=== PATIENT | male | born 1930 | race Caucasian/White ===

== ENCOUNTER 2020-09-22 03:16 | Inpatient (IN) | payer MEDICARE ==
[2020-09-22] MEDS ORDERED: Nitroglycerin 0.4 MG TAB (25 Tab Bottle) SL PRN (03:45)
[2020-09-22] MEDS: Nitroglycerin 2% Ointment 1 INCH/1 GM Packet TOP SCH ×3 (04:30→20:25)
[2020-09-22 05:10] LABS: #Eosinphils 0.2 10x3/uL (0.0-0.5); #Monocytes 0.7 10x3/uL (0.0-1.1); #Neutrophils 5.7 10x3/uL (1.5-8.4); %Basophils 0.1 % (0.0-2.0); %Eosinophils 2.4 % (0.0-6.0); %Lymphocytes 16.4 % (18.0-47.0); %Monocytes 8.9 % (0.0-10.0); %Neutrophils 71.8 % (40.0-75.0); Mean Corpuscular HGB CONC 32.7 g/dL (32.0-36.0); Mean Corpuscular Hemoglobin 30.7 pg (27.0-33.0); Mean Corpuscular Volume 93.9 fl (81.2-95.1); Mean Platelet Volume 10.7 fl (7.4-10.4); Platelet Count 195 10x3/uL (150-450); RBC Distribution Width 13.2 % (11.5-14.5); Red Blood Cell (RBC) Count 3.58 10x6/uL (4.32-5.72)
[2020-09-22 05:34] LABS: Anion Gap 11 mmol/L (10-20); BUN (Urea Nitrogen) 27 mg/dL (8.4-25.7); Calc. Creatinine Clearance 0 mL/min (70-130); Calcium 8.2 mg/dL (7.8-10.44); Carbon Dioxide 24 mmol/L (23-31); Chloride 110 mmol/L (98-107); Glucose 73 mg/dL (83-110); Magnesium 1.9 mg/dL (1.6-2.6); Potassium 3.5 mmol/L (3.5-5.1); Sodium 141 mmol/L (136-145)
[2020-09-22 05:39] LABS: Troponin I 0.097 ng/mL (< 0.028)
[2020-09-22 06:12] VITALS: BMI 26.2
[2020-09-22] MEDS ORDERED: FLU VACC QS2020-21(65YR UP)/PF 240 MCG/0.7 ML SYRINGE IM ONE (07:45)
[2020-09-22] MEDS: Aspirin Chewable 81 MG TAB PO SCH (08:40)
[2020-09-22 10:14] LABS: Troponin I 0.088 ng/mL (< 0.028)
[2020-09-22 16:13] LABS: Troponin I 0.075 ng/mL (< 0.028)
[2020-09-22] MEDS: Enoxaparin Sodium 30 MG/0.3 ML SYRINGE SC SCH ×2 (20:25→21:03)
[2020-09-22] MEDS: Sodium Chloride 0.9% 1,000 ML IV SCH (20:38)
[2020-09-22 22:09] LABS: SARS-CoV-2 PCR by NAA Not Detected (NotDetected)
[2020-09-22 22:27] LABS: Troponin I 0.079 ng/mL (< 0.028)
[2020-09-23] MEDS: Nitroglycerin 2% Ointment 1 INCH/1 GM Packet TOP SCH ×3 (03:48→20:22)
[2020-09-23] MEDS: Sodium Chloride 0.9% 1,000 ML IV SCH ×2 (05:07→18:11)
[2020-09-23] MEDS ORDERED: hydrALAZINE 25 MG TAB ONE (08:47)
[2020-09-23] MEDS ORDERED: DorzolamidE/Timolol 2%/0.5% Ophth Soln 10 ml Bottle EA EYE SCH (09:00)
[2020-09-23] MEDS ORDERED: Aspirin 325 mg Enteric Coated Tablet PO SCH (09:00)
[2020-09-23] MEDS ORDERED: Atorvastatin Calcium 10 MG TAB PO SCH (09:00)
[2020-09-23] MEDS: Timolol 0.5% Ophth Soln 5 ml Bottle EA EYE SCH ×2 (09:05→20:24)
[2020-09-23] MEDS: Fluticasone Propionate Nasal Spray 16 gm Bottle NASAL SCH (09:07)
[2020-09-23] MEDS: Hydrochlorothiazide 25 MG TAB PO SCH (09:12)
[2020-09-23] MEDS: Amlodipine 10 MG TAB PO SCH (09:24)
[2020-09-23] MEDS: Aspirin Chewable 81 MG TAB PO SCH (09:25)
[2020-09-23] MEDS: hydrALAZINE 25 MG TAB PO SCH ×3 (09:26→20:23)
[2020-09-23] MEDS: Docusate Calcium (SURFAK) 240 MG CAP PO SCH (09:28)
[2020-09-23] MEDS: Dorzolamide HCl 2% Ophth Soln 10 ml Bottle EA EYE SCH ×2 (09:28→20:23)
[2020-09-23] MEDS: Atorvastatin Calcium 40 MG TAB PO SCH (20:23)
[2020-09-23] MEDS: Enoxaparin Sodium 30 MG/0.3 ML SYRINGE SC SCH (20:24)
[2020-09-24] MEDS: Nitroglycerin 2% Ointment 1 INCH/1 GM Packet TOP SCH ×3 (04:55→20:24)
[2020-09-24] MEDS: Sodium Chloride 0.9% 1,000 ML IV SCH ×2 (10:54→21:25)
[2020-09-24] MEDS: Amlodipine 10 MG TAB PO SCH (10:54)
[2020-09-24] MEDS: Aspirin Chewable 81 MG TAB PO SCH (10:55)
[2020-09-24] MEDS: hydrALAZINE 25 MG TAB PO SCH ×3 (10:55→20:23)
[2020-09-24] MEDS: Dorzolamide HCl 2% Ophth Soln 10 ml Bottle EA EYE SCH ×2 (10:56→20:24)
[2020-09-24] MEDS: Hydrochlorothiazide 25 MG TAB PO SCH (10:56)
[2020-09-24] MEDS: Timolol 0.5% Ophth Soln 5 ml Bottle EA EYE SCH ×2 (10:56→20:24)
[2020-09-24] MEDS: Fluticasone Propionate Nasal Spray 16 gm Bottle NASAL SCH (10:57)
[2020-09-24] MEDS: Docusate Calcium (SURFAK) 240 MG CAP PO SCH (10:57)
[2020-09-24] MEDS: Atorvastatin Calcium 40 MG TAB PO SCH (20:23)
[2020-09-24] MEDS: Enoxaparin Sodium 30 MG/0.3 ML SYRINGE SC SCH (20:24)
[2020-09-25] MEDS: Nitroglycerin 2% Ointment 1 INCH/1 GM Packet TOP SCH ×2 (05:02→14:06)
[2020-09-25 05:03] LABS: #Eosinphils 0.2 10x3/uL (0.0-0.5); #Monocytes 0.6 10x3/uL (0.0-1.1); #Neutrophils 4.6 10x3/uL (1.5-8.4); %Basophils 0.1 % (0.0-2.0); %Eosinophils 2.7 % (0.0-6.0); %Lymphocytes 20.5 % (18.0-47.0); %Monocytes 9.2 % (0.0-10.0); %Neutrophils 67.2 % (40.0-75.0); Hemoglobin 11.9 g/dL (13.5-17.5); Mean Corpuscular HGB CONC 32.7 g/dL (32.0-36.0); Mean Corpuscular Hemoglobin 30.2 pg (27.0-33.0); Mean Corpuscular Volume 92.4 fl (81.2-95.1); Mean Platelet Volume 11.2 fl (7.4-10.4); Platelet Count 210 10x3/uL (150-450); RBC Distribution Width 13.1 % (11.5-14.5); Red Blood Cell (RBC) Count 3.94 10x6/uL (4.32-5.72); White Blood Cell (WBC) Count 6.8 10x3/uL (3.5-10.5)
[2020-09-25 05:19] LABS: ALT (SGPT) 15 U/L (8-55); AST (SGOT) 19 U/L (5-34); Albumin 3.2 g/dL (3.4-4.8); Alkaline Phosphatase 53 U/L (40-110); Anion Gap 12 mmol/L (10-20); BUN (Urea Nitrogen) 19 mg/dL (8.4-25.7); Bilirubin, Total 0.6 mg/dL (0.2-1.2); Calc. Creatinine Clearance 44 mL/min (70-130); Calcium 8.6 mg/dL (7.8-10.44); Carbon Dioxide 26 mmol/L (23-31); Chloride 107 mmol/L (98-107); Globulin 2.2 g/dL (2.4-3.5); Glucose 108 mg/dL (83-110); Potassium 3.9 mmol/L (3.5-5.1); Protein, Total 5.4 g/dL (5.8-8.1); Sodium 141 mmol/L (136-145)
[2020-09-25] MEDS: hydrALAZINE 25 MG TAB PO SCH ×2 (09:02→15:39)
[2020-09-25] MEDS: Docusate Calcium (SURFAK) 240 MG CAP PO SCH (09:02)
[2020-09-25] MEDS: Amlodipine 10 MG TAB PO SCH (09:02)
[2020-09-25] MEDS: Aspirin Chewable 81 MG TAB PO SCH (09:03)
[2020-09-25] MEDS: Hydrochlorothiazide 25 MG TAB PO SCH (09:04)
[2020-09-25] MEDS: Dorzolamide HCl 2% Ophth Soln 10 ml Bottle EA EYE SCH (09:05)
[2020-09-25] MEDS: Timolol 0.5% Ophth Soln 5 ml Bottle EA EYE SCH (09:05)
[2020-09-25] MEDS: Fluticasone Propionate Nasal Spray 16 gm Bottle NASAL SCH (09:05)
[2020-09-25] MEDS: Sodium Chloride 0.9% 1,000 ML IV SCH (10:25)
[2020-09-25 14:47] VITALS: BP 152/82; TEMP 97.3
[2020-09-25] MEDS ORDERED: Enoxaparin Sodium 40 MG/0.4 ML SYRINGE SC SCH (21:00)
== END 2020-09-25 16:41 | DRG 65 ==
LOC: CSHTELE 03:16 → OBSVTOIN 09-23 15:04
PROVIDERS: ADMIT Family Medicine; ATTEND Internal Medicine
DX: I63.89 Other cerebral infarction (principal); F02.81 Dementia in other diseases classified elsewhere, unspecified severity, with behavioral disturbance; G93.49 Other encephalopathy; I50.32 Chronic diastolic (congestive) heart failure; Z20.822 Contact with and (suspected) exposure to COVID-19; G30.1 Alzheimer's disease with late onset; I11.0 Hypertensive heart disease with heart failure; I25.10 Atherosclerotic heart disease of native coronary artery without angina pectoris; R77.8 Other specified abnormalities of plasma proteins; K21.9 Gastro-esophageal reflux disease without esophagitis; R47.81 Slurred speech; R29.810 Facial weakness; Z66 Do not resuscitate; I65.22 Occlusion and stenosis of left carotid artery; Z79.82 Long term (current) use of aspirin; Z79.891 Long term (current) use of opiate analgesic; Z86.73 Personal history of transient ischemic attack (TIA), and cerebral infarction without residual deficits; Z79.899 Other long term (current) drug therapy; Z95.1 Presence of aortocoronary bypass graft
CPT/HCPCS: 36415; 36416; 70551; 71045; 80048; 80053; 83735; 85025; 87635; 93005; 93010; 93306; 93880; G0378; J1650; J7050; U0003; U0005